=== PATIENT | male | born 1970 | race Caucasian/White ===

== ENCOUNTER 2025-06-06 04:03 | Emergency (ER) | payer BC, SELFPAY ==
[2025-06-06 04:05] VITALS: BP 144/90
[2025-06-06 04:30] VITALS: BMI 32.0
[2025-06-06] MEDS: NSS 1000 IV (04:53)
[2025-06-06] MEDS: ZOFRAN 4 MG IV (04:53)
[2025-06-06] MEDS: MORPHINE SULFATE 4 MG IV (04:53)
[2025-06-06 04:55] LABS: Hematocrit 42.2 % (39.0-52.0); Hemoglobin 14.7 g/dL (13.0-18.0); Mean Corp Hgb Conc. 34.8 g/dL (33.0-37.0); Mean Corpuscular Volume 90.0 fL (80.0-94.0); Nucleated Red Blood Cells % 0 % (-); Platelet Count 189 10^3/uL (130-400); Red Cell Dist. Width 13.1 % (11.5-14.5)
[2025-06-06 05:19] LABS: ALT (SGPT) 24 U/L (0-50); AST (SGOT) 28 U/L (17-59); Albumin 4.4 g/dl (3.5-5.0); Alkaline Phosphatase 75 U/L (38-126); Calcium 9.5 mg/dl (8.4-10.2); Carbon Dioxide 26 mmol/L (22-30); Chloride 102 mmol/L (98-107); Estimated Creatinine Clearance 49 ml/min; Glucose 132 mg/dl (70-99); Lipase 169 U/L (23-300); Potassium 4.2 mmol/L (3.5-5.1); Sodium 137 mmol/L (135-145); Total Protein 7.1 g/dl (6.3-8.2); eGFR 41.66
[2025-06-06 05:23] LABS: Urine Character Clear (Clear)
[2025-06-06 05:29] LABS: Blood Urea Nitrogen 26 mg/dl (9-20)
[2025-06-06 05:45] VITALS: BP 144/93
[2025-06-06] MEDS: FLOMAX 0.4 MG PO (05:51)
[2025-06-06 06:15] LABS: Urine Red Blood Cell 0-2 /HPF (0-2); Urine Squamous Cell 0-2 /LPF (Few); Urine White Cell 0-2 /HPF (0-5)
[2025-06-06] MEDS: PERCOCET 5/325 2 TABLET PO (06:20)
--- NOTE | 2025-06-06 06:24 | ED.GENMED ---
History of Present Illness
General
Chief Complaint: Flank Pain
Time Seen by Provider: 06/06/25 04:12
Past History
Past History
ED Past Medical History: Hyperthyroidism
Social History
Tobacco: Non-smoker
Alcohol: None
Personal:
Living: with family
Employment: Employed
Course
Orders/Labs/Results
Orders:
Orders
06/06/25 04:28
0.9% Sodium Chloride 1000 ml [Nss] 1,000 ml IV BOLUS
06/06/25 04:42
Complete Blood Count/With Diff Urgent
Comprehensive Metabolic Panel Urgent
Lipase Urgent
Urinalysis Reflex To Culture Urgent
Date Specimen was Collected: 06/06/25
Time Specimen was Collected: 04:29
Urine Microscopic Reflex Cult Urgent
06/06/25 04:50
CT Abd/pel Without Iv Or Oral Urgent
Comment:
Reason For Exam: L flank pain
Morphine Sulfate 4 mg IV NOW STA
Ondansetron Injectable [Zofran] 4 mg IV NOW STA
06/06/25 05:37
Tamsulosin [Flomax] 0.4 mg PO NOW STA
06/06/25 06:14
Oxycodone/Acetaminophen [Percocet 5/325] 2 tablet PO NOW STA
Abnormal Lab Results
06/06/25
04:42
WBC 12.5 H 10^3/uL
(4.8-10.8)
RBC 4.69 L 10^6/uL
(4.70-6.10)
MCH 31.3 H pg
(27.0-31.0)
Abs Immat Gran (auto) 0.1 H 10^3/uL
(0-0.05)
Absolute Neuts (auto) 9.2 H 10^3/uL
(1.4-6.5)
Absolute Monos (auto) 1.3 H 10^3/uL
(0.1-0.6)
Immature Gran % 0.7 H %
(0-0.5)
Lymphocytes % 13.8 L %
(20.5-51.1)
Monocytes % 10.5 H %
(1.7-9.3)
BUN 26 H mg/dl
(9-20)
Creatinine 1.9 H mg/dL
(0.7-1.3)
Glucose 132 H mg/dl
(70-99)
Urine Ketones 1+ A
(Negative)
Ur Occult Blood Reflex 1+ A
(Negative)
Urine Albumin (Reflex) 1+ A
(Neg - Trace)
06/06/25 04:42
06/06/25 04:42
Vital Signs
Initial and Last Documented VS:
Initial Vital Signs
Temp Pulse Resp BP Pulse Ox
36.8 C 96 22 144/90 95
06/06/25 04:05 06/06/25 04:05 06/06/25 04:05 06/06/25 04:05 06/06/25 04:05
Last Documented Vital Signs
Temp Pulse Resp BP Pulse Ox
36.8 C 73 20 144/93 99
06/06/25 04:05 06/06/25 05:45 06/06/25 05:45 06/06/25 05:45 06/06/25 05:45
MDM/Problems Addressed
Differential Diagnosis Includes:
see MDM
MDM/Problems Addressed:
Note:
CHIEF COMPLAINT(S)
Right-sided abdominal pain radiating to the scrotum, intermittent in nature.
HISTORY OF PRESENT ILLNESS
The patient is a 54-year-old male who presents with right-sided abdominal pain that radiates to the scrotum. The pain began on 2 DAYS AGO and is described as intermittent, with periods of relief before it returns. The patient notes the pain
intensity increases significantly at times, described as worse than previous episodes he has experienced. He does not report hematuria but experiences diaphoresis when the pain is severe. The patient also reports nausea, which was severe enough to
almost cause emesis.
He has been managing the pain with Ibuprofen, taking three tablets most recently at 1 PM; however, the pain was severe enough to wake him from sleep before taking the medication. The intensity diminished after taking Ibuprofen. The patient denied
any associated fever or chills but mentioned feeling 'a little bit' nauseated still. He has a history of passing kidney stones spontaneously.
The patient reported no history of abdominal surgeries. His gallbladder is still intact. He denied recent trauma but suggested possible musculoskeletal pain due to lifting weights, with a personal best of lifting 455 pounds noted.
PHYSICAL EXAM
- GENERAL: Alert, uncomfortable
Neck: supple
CARDIAC: Regular rate and rhythm .
LUNGS: Clear breath sounds bilaterally, no acute respiratory distress, no wheezes/rales/rhonchi
ABDOMEN: Soft, normal bowel sounds, nondistended, mild RLQ tenderness, no guarding, no rebound, neg hogan's
: normal inspection of region
nontender testicles b/l
no rashes
NEUROLOGICAL: Alert and oriented, no focal neuro deficits
SKIN: Warm and dry, skin intact.
PSYCH: Normal and appropriate interaction.
- Nursing notes reviewed and vital signs reviewed.
PROBLEM LIST
Acute:
- Right-sided abdominal pain
- Intermittent pain radiating to the scrotum
- Nausea
Chronic:
- History of kidney stones
PLAN
1. Obtain a computed tomography (CT) scan of the abdomen to assess for stones.
2. Send urine samples and conduct blood work for further evaluation.
3. Administer intravenous fluids to aid in stone passage and pain management.
4. Offer analgesics: Discussed with the patient the option of intravenous Morphine for acute pain control versus oral Percocet (oxycodone), considering the patient�s concerns about potential addiction.
5. Provide Alpha-blockers, such as Flomax, to aid in stone passage.
DIFFERENTIAL DIAGNOSIS
The Differential Diagnosis includes, in no particular order and is not limited to:
1. Nephrolithiasis (Kidney Stones)
2. Musculoskeletal pain
3. Testicular torsion
4. Epididymitis
5. Inguinal hernia
6. Appendicitis
7. Pyelonephritis
8. Abdominal aortic aneurysm
9. Urinary tract infection
10. Diverticulitis
CARE-UPDATE
06/06/25 - 06:12
The patient has two stones measuring up to three millimeters each. There is no infection present in the urine. However, kidney function has declined, with creatinine levels rising from 1.2 a few years ago to 1.9. This rise in creatinine could be due
to underlying hypertension or dehydration. The patient is advised to stay hydrated and recheck kidney function in a week. For pain management, the patient should avoid large doses of ibuprofen due to elevated creatinine levels. Instead, a
prescription for pain relief using hydrocodone or Tylenol is provided, with the caution of potential constipation. The patient will be given a Percocet in the clinic for immediate pain relief. The patient should monitor urine for signs of stone
passage and can collect any stone for analysis by a urologist if desired. Plan to follow up with reassessment of creatinine levels in a week.
*Pulse Oximetry
SaO2: 99
Oxygen Mode of Delivery: Room air
ED Attending Note
-
Portions of this chart may have been created with voice recognition software.� Occasional wrong word or��sound alike� substitutions may have occurred due to the inherent limitations of voice recognition software.
Discharge Plan
Departure
Condition: Fair
Discharge Problem:
Kidney stone
Instructions: Kidney Stones (DC), How to Strain Your Urine
Prescriptions:
New
hydrocodone-acetaminophen 5-325 mg tablet
1 tab PO Q8H PRN (Reason: Pain) Qty: 7 0RF
tamsulosin [Flomax] 0.4 mg capsule
0.4 mg PO DAILY Qty: 10 0RF
Referrals:
Gaibler,Tim C., DO [Family Provider, Family Practice]
Rashid Ludwig MD [Active, Urology] - Follow up in 5-7 days
Activity Restrictions/Additional Instructions:
YOU HAE 2 SMALL KIDNEY STONES LOW IN YOUR R URETER. YOU NEED TO MAKE SURE TO SEE UROLOGIST IF YOU DO NOT PASS THE STONES
EACH TIME YOU URINATE MAKE SURE TO USE THE STRAINER
DRINK FLUIDS
TAKE EITHER REGULAR TYLENOL OR VICODIN EVERY 6 HOURS NEEDED FOR PAIN
THE VICODIN IS A NARCOTIC, NO ALCOHOL OR DRIVING ON THIS MEDICATION
PROBABLY AVOID IBUPROFEN FOR NOW, YOUR KIDNEY FUNCTION IS BUMPED SOME
MAKE SURE TO HAVE BLOOD WORK RECHECKED IN A WEEK OR SO.
RETURN FOR: SEVEREP AIN, FEVER, VOMITING, NOT URINATING OR ANY CONCENRS.
TAKE FLOMAX EVERY DAY UNTIL YOU PASS THE STONES
Interventions
Interventions:
*Risk Screen - Suicide Last Done: 06/06/25 04:05
*General Assessment Last Done: 06/06/25 04:30
*Neglect/Abuse Screening Last Done: 06/06/25 04:05
*ED- Fall Risk Assessment Last Done: 06/06/25 04:30
*ED COVID-19 Vaccine History Last Done: 06/06/25 04:30
LH-Dvtdcd-Rabxfwazqi Assessment Last Done: 06/06/25 04:46
ED-Male Genitourinary Assessment Last Done: 06/06/25 04:46
Discharge Date and Time
Print Language: MARTINIQUAIS
== END 2025-06-06 06:46 | disposition home or self-care (01) ==
LOC: EMR 04:03
PROVIDERS: Physician Assistant; EMERGENCY PHYSICIAN Emergency Medicine; FAMILY PHYSICIAN Family Medicine
DX: N13.2 Hydronephrosis with renal and ureteral calculous obstruction (principal); E05.90 Thyrotoxicosis, unspecified without thyrotoxic crisis or storm; Z87.442 Personal history of urinary calculi
CPT/HCPCS: 99284; 96374; 96375; 96361; 74176; 80053; 81003; 81015; 83690; 85025